=== PATIENT | female | born 2000 | race Caucasian/White ===

== ENCOUNTER 2023-12-04 13:28 | Emergency (ER) | payer OTHER, SELFPAY ==
[2023-12-04 13:35] VITALS: BP 125/78
--- NOTE | 2023-12-04 14:55 | ED.SKININJ ---
HPI-Injury
General
Chief Complaint: Bite
Source: patient
Time Seen by Provider: 12/04/23 14:43
History of Present Illness-Injury
Initial Injury comments:
23-year-old female with no significant past medical history presenting to the emergency department for evaluation after she was bit on the left thigh by a foster dog while at a friend's house. Patient believes the foster dog is up-to-date on
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 Patient notes multiple abrasions/bite wounds to the left anterolateral thigh. No other injuries were sustained.
Past History
Past History
ED Past Medical History: None
ED Past Surgical History: None
Social History
Tobacco: Non-smoker
Alcohol: None
Drug: None
Personal: Single
Living: with family
Employment: Employed
Review of Systems
Review of Systems
All Other Systems: ROS reviewed and negative except as documented in HPI and ROS
Phy Exam
Physical Exam
Physical Exam:
GENERAL: Alert , in no apparent distress
EYE: conjunctiva clear
Head: Normocephalic atraumatic
NECK: Supple,
ENT: mmm.
LUNGS: no acute respiratory distress
NEUROLOGICAL: Alert and oriented
SKIN: Warm and dry, multiple superficial abrasions/some deeper puncture wounds more proximally with surrounding erythema but no active bleeding
MUSCULOSKELETAL: well perfused.
PSYCH: Normal and appropriate interaction.
Scores
Heart Failure Risk
Heart Failure Risk Score: Not Applicable
Heart Score for Chest Pain Patients
STEMI patient?: Not applicable
Withdrawal Assessment of Alcohol
Withdrawal Assessment Completed?: Not applicable
Course
Orders/Labs/Results
Orders:
Orders
12/04/23 14:54
Amoxicillin 875 mg/Clav 125 mg [Augmentin 875 mg/125 mg] 1 tablet PO NOW STA
Rabies Vaccine (Pcec)/Pf [Rabavert Rabies Vacc W-Diluent] 2.5 unit IM .ONCE ONE
Vital Signs
Initial and Last Documented VS:
Initial Vital Signs
Temp Pulse Resp BP Pulse Ox
97.3 F 104 16 125/78 98
12/04/23 13:35 12/04/23 13:35 12/04/23 13:35 12/04/23 13:35 12/04/23 13:35
Last Documented Vital Signs
Temp Pulse Resp BP Pulse Ox
97.3 F 88 16 118/78 99
12/04/23 13:35 12/04/23 15:11 12/04/23 15:11 12/04/23 15:11 12/04/23 15:11
MDM/Problems Addressed
MDM/Problems Addressed:
23-year-old female presenting to the emergency department for evaluation after being bit by dog on the left anterior thigh. She is requesting rabies vaccine. She believes dog is up-to-date. Patient has been vaccinated for rabies before so we will
only need 1 dose today and 1 3 days from now. Will prescribe a prescription for this to be done at outpatient infusion. Will cover with Augmentin for infection prevention. Irrigated with copious normal saline. Advised on return precautions but
otherwise stable for discharge home.
*Pulse Oximetry
Patient hypoxic: no
*Critical Care Note
Total Time (30-74mins, 75-104mins- exclusive of procedures): Not Applicable
ED Attending Note
-
Portions of this chart may have been created with voice recognition software.� Occasional wrong word or��sound alike� substitutions may have occurred due to the inherent limitations of voice recognition software.
Discharge Plan
Departure
Patient Disposition: Home (Routine Discharge)
Date of Disposition: 12/04/23
Time of Disposition: 14:55
Patient with high blood pressure during this ER visit?: No
Discharge Problem:
Dog bite, Laceration of left thigh
Instructions: Animal Bites (DC)
Prescriptions:
New
amoxicillin-pot clavulanate 875-125 mg tablet
1 tab PO BID 7 Days Qty: 14 0RF
Referrals:
Kenna Barney DO [Family Provider] -
Interventions
Interventions:
*Risk Screen - Suicide Last Done: 12/04/23 13:35
*General Assessment Last Done: 12/04/23 13:35
*Neglect/Abuse Screening Last Done: 12/04/23 13:35
ED- Fall Risk Assessment Last Done: 12/04/23 15:11
*ED COVID-19 Vaccine History Last Done: 12/04/23 14:54
*Nursing Disposition Last Done: 12/04/23 15:11
ED-Skin Assessment Last Done: 12/04/23 14:55
Discharge Date and Time
Discharge Date/Time: 12/04/23 15:12
Print Language: [id number]
[2023-12-04] MEDS: AUGMENTIN 875 MG/125 MG 1 TABLET PO (15:01)
[2023-12-04] MEDS: RABAVERT RABIES VACC W-DILUENT 2.5 UNIT IM (15:02)
[2023-12-04 15:11] VITALS: BP 118/78
== END 2023-12-04 15:12 | disposition home or self-care (01) ==
LOC: EMR 13:28
PROVIDERS: EMERGENCY PHYSICIAN Emergency Medicine; FAMILY PHYSICIAN Internal Medicine
DX: S71.132A Puncture wound without foreign body, left thigh, initial encounter (principal); S70.312A Abrasion, left thigh, initial encounter; W54.0XXA Bitten by dog, initial encounter; Z23 Encounter for immunization
CPT/HCPCS: 90471; 99282; 90675

== ENCOUNTER 2023-12-07 13:31 | Outpatient (RCR) | payer OTHER, SELFPAY ==
[2023-12-07 13:41] VITALS: BP 109/73
[2023-12-07] MEDS: RABAVERT RABIES VACC W-DILUENT 2.5 UNIT IM (13:54)
== END 2023-12-08 09:24 | disposition home or self-care (01) ==
LOC: OID 13:31
PROVIDERS: ATTENDING PHYSICIAN Physician Assistant Medical; FAMILY PHYSICIAN Internal Medicine
DX: Z20.3 Contact with and (suspected) exposure to rabies (principal); Z23 Encounter for immunization
CPT/HCPCS: 90471; 90675